=== PATIENT | male | born 1940 | race Caucasian/White ===

== ENCOUNTER 2023-01-25 09:39 | Emergency (ER) | payer MEDICARE, BC ==
[~2023-01-25] VITALS: Ht 162.6 cm; Wt 82.1 kg
[~2023-01-25 09:39] MED LIST: AMIODARONE HCL200 MG PO; ASPIRIN EC325 MG PO; ASPIRIN EC81 MG PO; ATORVASTATIN CA40 MG PO; CYCLOBENZAPRINE10 MG PO; FUROSEMIDE20 MG PO; LEVAQUIN500 MG PO; LOSARTAN POTAS100 MG PO; LOSARTAN POTASS25 MG PO; LUTEIN20 M1 PO; METOPROLOL SUCC50 MG PO; METOPROLOL TART25 MG PO; NORCO 5-325 TA1 EACH PO; POTASSIUM CHLO20 MEQ PO; PRILOSEC20 MG PO; PROVENTIL HFA6.7 GM INH; ULTRAM50 MG PO
[2023-01-25 10:37] LABS: BASOPHILS 0.4 % (0-2); HEMATOCRIT 25.7 % (35.0-50.0); HEMOGLOBIN 8.4 g/dL (12.0-18.0); LYMPHOCYTES 10.6 % (24-44); MCH 30.3 (27-36); MCHC 32.8 g/dl (30-36); MCV 92.2 fl (81-99); MONOCYTES 5.7 % (0-12); NEUTROPHILS 82.3 % (39-80); PLATELET COUNT 199 K/uL (140-440); RBC 2.79 M/ul (4.3-5.7)
[2023-01-25 10:48] LABS: ALBUMIN 3.1 g/dL (3.4-5.0); ALBUMIN/GLOBULIN RATIO 0.86 (1.1-2.4); ANION GAP 14.1 (7-21); BILIRUBIN, TOTAL 0.4 ng/dL (0.2-1.0); BUN/CREATININE RATIO 20.17 (6.0-28.6); CALCIUM 8.5 mg/dL (8.5-10.1); CREATININE, SERUM 1.14 mg/dL (0.70-1.30); MAGNESIUM 1.9 mg/dL (1.8-2.4); POTASSIUM 4.1 mmol/L (3.5-5.1); PROTEIN, TOTAL 6.7 g/dL (6.4-8.2)
[2023-01-25 14:02] LABS: INFLUENZA B NAA NEGATIVE (NEGATIVE); RESPIRATORY SYNCYTIAL VIR NAA NEGATIVE (NEGATIVE)
[2023-01-25 16:35] VITALS: BP 114/88
--- NOTE | 2023-01-26 05:55 | EKG ---
[facility] [address] [facility] [place] [address] Signed Sinus rhythm with premature supraventricular complexes Left axis deviation Right bundle branch block V1-3 ST depression not seen on previous ekg Abnormal ECG When compared with ECG of 17-JUL-2016 20:45, premature supraventricular complexes are now present Right bundle branch block is now present Questionable change in initial forces of Anterior leads Confirmed by AN MOLINA MD ([id number]) on 01/26/2023 5:55:04 AM Electronically Signed By: AN MOLINA 01/26/23 0555 PATIENT NAME: JOSE BAJWA Electrocardiogram DATE OF : 40 PHYSICIAN: AN MOLINA REPORT #: [id number] REPORT IS CONFIDENTIAL AND NOT TO BE RELEASED WITHOUT AUTHORIZATION
== END 2023-01-25 16:43 | disposition short-term general hospital (02) ==
LOC: ED 09:39
PROVIDERS: Emergency Medicine
DX: I21.4 Non-ST elevation (NSTEMI) myocardial infarction (principal); I35.0 Nonrheumatic aortic (valve) stenosis; I11.0 Hypertensive heart disease with heart failure; I50.9 Heart failure, unspecified; K21.9 Gastro-esophageal reflux disease without esophagitis; Z79.899 Other long term (current) drug therapy; Z79.82 Long term (current) use of aspirin; Z95.1 Presence of aortocoronary bypass graft; Z87.891 Personal history of nicotine dependence; Z20.822 Contact with and (suspected) exposure to COVID-19
CPT/HCPCS: 36415; 71045; 80053; 83735; 83880; 84484; 85025; 87502; 93005; 93010; C9803; J1940; U0002

== ENCOUNTER 2023-11-26 10:18 | Day surgery (SDC) | payer MEDICARE, BC ==
[~2023-11-26] VITALS: Ht 160 cm; Wt 80.0 kg
--- NOTE | ~2023-11-26 | OR ---
[facility] [address] [place], [place] [address] Draft DATE OF OPERATION: 11/26/2023 SURGEON: Praveen Boyd MD PREOPERATIVE DIAGNOSIS: History of anemia, now resolved. POSTOPERATIVE DIAGNOSES: 1. Sigmoid and left-sided diverticulosis. 2. Polyps x4 at hepatic flexure. PROCEDURE: Total colonoscopy to cecum with cold morcellation polypectomy x4. ANESTHESIA: Intravenous sedation; fentanyl 100 mcg and Versed 5 mg. INDICATION: This 83-year-old white man is a patient of Dr. Friedman and has history of anemia, which is now said to be resolved. He has had no rectal bleeding, diarrhea, or constipation. He is admitted to undergo colonoscopy at this time. He understands the risk of bleeding, infection, and perforation. FINDINGS: The prep was good. Complete colonoscopy was undertaken to the cecum with full intubation of the cecum. There were four small polyps in the hepatic flexure, all excised with cold morcellation technique. Diverticula were noted at the sigmoid and left colon. There was no evidence of malignancy or colitis. PROCEDURE IN DETAIL: The patient was brought to the endoscopy suite and placed in the lateral decubitus position, given intravenous sedation to the point of slurred speech and nystagmus with full cardiopulmonary monitoring. Digital rectal examination was normal. An Olympus video colonoscope was passed in the rectum and manipulated into the sigmoid where numerous diverticula were noted. With various manipulations, the scope was passed beyond this ultimately to the cecum. The ileocecal valve and appendiceal orifice were normal. The scope was withdrawn at the region of the hepatic flexure where there were four small polyps, all were excised with cold morcellation technique. Further withdrawal showed only diverticular change of the left colon and sigmoid. Retroflexed PATIENT NAME: JOSE BAJWA OPERATIVE REPORT DATE OF : 40 REPORT #: [id number] PHYSICIAN: PRAVEEN BOYD MD PCP: HERBERT FRIEDMAN MD REPORT IS CONFIDENTIAL AND NOT TO BE RELEASED WITHOUT AUTHORIZATION [facility] [address] [facility] [place], [place] [address] Draft view of the rectum was normal. Scope was removed and the patient was taken to the recovery room in good condition. CONCLUDING DIAGNOSES: Polyps x4 and diverticulosis. PLAN: Recommend high-fiber diet and repeat colonoscopy in 5 years, sooner if clinically indicated. The patient will return to the ongoing care of Dr. Friedman. MD SHY Brito/MODL /[id number] cc: Herbert Friedman MD Copies: HERBERT FRIEDMAN MD ~ PATIENT NAME: JOSE BAJWA OPERATIVE REPORT DATE OF : 40 REPORT #: [id number] PHYSICIAN: PRAVEEN BOYD MD PCP: HERBERT FRIEDMAN MD REPORT IS CONFIDENTIAL AND NOT TO BE RELEASED WITHOUT AUTHORIZATION
--- NOTE | ~2023-11-26 | OR ---
[facility] [address] [place], [place] [address] Draft DATE OF OPERATION: 11/26/2023 SURGEON: Praveen Boyd MD PREOPERATIVE DIAGNOSIS: History of anemia and distant history of food impaction 2014. POSTOPERATIVE DIAGNOSIS: Hiatal hernia without evidence of stricture or neoplasm. PROCEDURE: Esophagogastroduodenoscopy with biopsy. ANESTHESIA: Intravenous sedation; fentanyl 100 mcg and Versed 3 mg. INDICATIONS: An 83-year-old white man is a patient of Dr. Friedman. He has a history of food impaction in 2014. He has no particular symptoms of dysphagia currently, though he has had episodes of dysphagia in the past. He is admitted to undergo upper endoscopy to assess for eosinophilic esophagitis, stricture, or other etiology of his issues of dysphagia from time to time. He understands the risk of bleeding, infection, and perforation related to the upper endoscopy and wished to proceed. FINDINGS: There is no evidence of this distinct stricture, but there was some ongoing inflammation. The patient is on omeprazole already. The stomach and duodenum were normal. CLOtest was negative. DESCRIPTION OF PROCEDURE: The patient was brought to the endoscopy suite and placed in lateral decubitus position, given intravenous sedation to the point of slurred speech and nystagmus after lidocaine hypopharyngeal anesthesia. A bite block was placed. Olympus video upper endoscope was passed in the hypopharynx. The vocal cords appeared normal. Scope was advanced via the stomach, which showed a reasonably normal esophagus, showed there was a mild inflammatory change in the distal portion, but no actual stricture and no Schatzki's ring. There was no evidence of Whitlock's epithelium. Scope was passed to the stomach, which was insufflated with air. Rugal folds were normal as was the antrum and pylorus. Scope was passed through the pylorus into the duodenum, PATIENT NAME: JOSE BAJWA OPERATIVE REPORT DATE OF : 40 REPORT #: [id number] PHYSICIAN: PRAVEEN BOYD MD PCP: HERBERT FRIEDMAN MD REPORT IS CONFIDENTIAL AND NOT TO BE RELEASED WITHOUT AUTHORIZATION [facility] [address] [place], [place] [address] Draft which was normal. Biopsies were obtained of the duodenum to assess for celiac disease. The scope was withdrawn. A biopsy was then taken of the antrum for both JOANIE and pathologic testing. Retroflexed view did confirm hiatal hernia. The scope was straightened, withdrawn and biopsies were taken of the distal esophagus and mid esophagus as well. Scope was removed and plans were then made for colonoscopy. MD SHY Brito/MODL /[id number] cc: Dr. Friedman Copies: ~ PATIENT NAME: JOSE BAJWA OPERATIVE REPORT DATE OF : 40 REPORT #: [id number] PHYSICIAN: PRAVEEN BOYD MD PCP: HERBERT FRIEDMAN MD REPORT IS CONFIDENTIAL AND NOT TO BE RELEASED WITHOUT AUTHORIZATION
[~2023-11-26 10:18] MED LIST changes: +CLOPIDOGREL75 MG PO; +ENTRESTO 97 MG1 EACH PO; +FERATE240 MG PO; +FUROSEMIDE40 MG PO; +IBLOOD GLUCOSE TEST STRIP 1 EA TEST VI PRN; +ICAPS MV TABLE1 EACH PO; +LACTATED RINGER'S 1,000 ML IV SCH; +LIDOCAINE HCL 1% 5 ML SDV INJ ONE; +METFORMIN HCL500 M1 PO; +MIDAZOLAM HCL 5 MG/5 ML VIAL IV PRN; +VITAMIN B COMP1 EACH PO; +VITAMIN C500 M5 PO; +fentaNYL citrate 100 MCG/2 ML VIAL IV PRN
[2023-11-26 10:32] VITALS: BP 151/75
[2023-11-26] MEDS ORDERED: MIDAZOLAM HCL 5 MG/5 ML VIAL ONE (12:11)
[2023-11-26] MEDS ORDERED: fentaNYL citrate 100 MCG/2 ML VIAL ONE (12:12)
--- NOTE | 2023-11-26 13:39 | NUR ---
11/26/23 1339 Sheets,Eliane 1327 PT ARRIVED TO PACU AND WAKES EASILY. PT DENIES PAIN AND NAUSEA. RESP EVEN AND UNLABORED. VSS. 1336 O2 TURNED OFF.
[2023-11-26 14:07] VITALS: BP 101/62
--- NOTE | 2023-11-30 12:55 | PATH ---
[facility] [address] [facility] [place], [place] [address] Signed SPECIMEN(S): A DUODENAL BIOPSY SPECIMEN(S): B ANTRUM BIOPSY SPECIMEN(S): C DISTAL ESOPHAGEAL BIOPSY SPECIMEN(S): D MID ESOPHAGEAL BIOPSY SPECIMEN(S): E HEPATIC FLEXURE COLON SPECIMEN SOURCE: A. DUODENAL BIOPSY B. ANTRUM BIOPSY C. DISTAL ESOPHAGEAL BIOPSY D. MID ESOPHAGEAL BIOPSY E. HEPATIC FLEXURE COLON CLINICAL HISTORY: Esophageal stricture, colon screening, chronic esophagitis and duodenitis, diverticulosis FINAL PATHOLOGIC DIAGNOSIS: A. 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 B. Antrum, biopsies: - Benign antral mucosa with vascular congestion, negative for active inflammation. - No H. pylori bacteria are detected by HE stain. C. Distal esophagus, biopsies: - Chronic reflux esophagogastritis, negative for Whitlock's metaplasia. D. Mid esophagus, biopsies: - Benign squamous esophageal mucosa with vascular congestion, negative for increased eosinophils. E. Hepatic flexure colon, biopsies: - Fragments of tubular adenoma. AMB MICROSCOPIC EXAMINATION: Histologic sections of all submitted blocks (or IHC as applicable) are digitally scanned and examined. These findings, together with the gross examination, support the pathologic diagnosis. GROSS DESCRIPTION: A. The specimen, labeled and designated "[place] duodenal biopsy," is received PATIENT NAME: JOSE BAJWA PATHOLOGY DATE OF : 40 REPORT #: [id number] PHYSICIAN: TAMMIE PATHOLOGY PCP: HERBERT KOLB MD REPORT IS CONFIDENTIAL AND NOT TO BE RELEASED WITHOUT AUTHORIZATION [facility] [address] [place], [place] [address] Signed in formalin and consists of two kraft soft tissue fragments, ranging from 0.1-0.4 cm. Entirely submitted in (A1). B. The specimen, labeled and designated "Friese, antrum biopsy," is received in formalin and consists of three kraft soft tissue fragments, ranging from 0.2-0.3 cm. Entirely submitted in (B1). C. The specimen, labeled and designated "Friese, distal esophageal biopsy," is received in formalin and consists of five kraft soft tissue fragments, ranging from 0.2-0.9 cm. Entirely submitted in (C1). D. The specimen, labeled and designated "Friese, mid esophageal biopsy," is received in formalin and consists of six kraft soft tissue fragments, ranging from 0.1-0.4 cm. Entirely submitted in (D1). E. The specimen, labeled and designated "Friese, hepatic flexure colon biopsy," is received in formalin and consists of nine kraft soft tissue fragments, ranging from 0.2-0.4 cm. Entirely submitted in (E1). VB (under the direct supervision of a pathologist) The Gross Description was prepared using a voice recognition system. The report was reviewed for accuracy; however, sound-alike word errors, addition and/or deletions may occur. If there is any question about this report, please contact Client Services. ADDITIONAL NOTES: Immunohistochemical and/or in situ hybridization studies if performed in this case included appropriate positive controls that reacted as expected. This test was developed and its performance characteristics determined by [email or web address]. It has not been cleared or approved by the U.S. Food and Drug Administration. The FDA has determined that such clearance or approval is not necessary. This test is used for clinical purposes. It should not be regarded as investigational or for research. [facility] is certified under the Clinical Laboratory Improvement Amendments of 1988 (CLIA) as qualified to perform high complexity clinical laboratory testing. PERFORMING LABORATORY: Technical component was performed by [email or web address], [address] [place] [address] (CLIA# [id number]). Professional interpretation was performed by [facility] [address] [place] [phone] [id number] Diagnostician: Carmelina Moyer MD PATIENT NAME: JOSE BAJWA PATHOLOGY DATE OF : 40 REPORT #: [id number] PHYSICIAN: TAMMIE SIM PCP: HERBERT KOLB MD REPORT IS CONFIDENTIAL AND NOT TO BE RELEASED WITHOUT AUTHORIZATION [address] [place] [address] Signed Pathologist Electronically Signed 11/30/2023 Copies: ~ PATIENT NAME: JOSE BAJWA PATHOLOGY DATE OF : 40 REPORT #: [id number] PHYSICIAN: TAMMIE SIM PCP: HERBERT KOLB MD REPORT IS CONFIDENTIAL AND NOT TO BE RELEASED WITHOUT AUTHORIZATION
== END 2023-11-26 14:20 | disposition home or self-care (01) ==
LOC: OPS 10:18 → DS 10:23 → OPS 12:00 → DS 12-03 09:15
PROVIDERS: ATTEND Surgery
PROC: 0DB28ZX Excision of Middle Esophagus, Via Natural or Artificial Opening Endoscopic, Diagnostic (ICD-10-PCS; 2023-11-26)
PROC: 0DB38ZX Excision of Lower Esophagus, Via Natural or Artificial Opening Endoscopic, Diagnostic (ICD-10-PCS; 2023-11-26)
PROC: 0DBL8ZZ Excision of Transverse Colon, Via Natural or Artificial Opening Endoscopic (ICD-10-PCS; principal; 2023-11-26 12:00)
PROC: 0DB98ZX Excision of Duodenum, Via Natural or Artificial Opening Endoscopic, Diagnostic (ICD-10-PCS; 2023-11-26 12:00)
DX: Z12.11 Encounter for screening for malignant neoplasm of colon (principal); D12.3 Benign neoplasm of transverse colon; K57.30 Diverticulosis of large intestine without perforation or abscess without bleeding; K29.80 Duodenitis without bleeding; K21.00 Gastro-esophageal reflux disease with esophagitis, without bleeding; K44.9 Diaphragmatic hernia without obstruction or gangrene; I50.9 Heart failure, unspecified; I49.9 Cardiac arrhythmia, unspecified; Z95.1 Presence of aortocoronary bypass graft; Z87.891 Personal history of nicotine dependence; Z88.0 Allergy status to penicillin; Z79.82 Long term (current) use of aspirin; Z79.01 Long term (current) use of anticoagulants; Z79.899 Other long term (current) drug therapy
CPT/HCPCS: 99153; G0500; J2250; J3010; J7121

== ENCOUNTER 2024-08-22 16:38 | Emergency (ER) | payer MEDICARE, BC ==
[~2024-08-22] VITALS: Ht 160 cm; Wt 76.9 kg
[~2024-08-22 16:38] MED LIST changes: -IBLOOD GLUCOSE TEST STRIP 1 EA TEST VI PRN; -LACTATED RINGER'S 1,000 ML IV SCH; -LIDOCAINE HCL 1% 5 ML SDV INJ ONE; -MIDAZOLAM HCL 5 MG/5 ML VIAL IV PRN; -fentaNYL citrate 100 MCG/2 ML VIAL IV PRN
[2024-08-22] MEDS ORDERED: JARDIANCE10 MG PO (18:07)
[2024-08-22 18:39] LABS: CORONAVIRUS COVID-19 AG NEGATIVE (NEGATIVE); INFLUENZA A AG NEGATIVE (NEGATIVE); INFLUENZA B AG NEGATIVE (NEGATIVE)
[2024-08-22] MEDS ORDERED: ALBUTEROL/IPRATROPIUM 3 ML NEB INH ONE (19:30)
[2024-08-22] MEDS ORDERED: DEXAMETHASONE SOD PHOS 10 MG/ML VIAL IV ONE (20:45)
[2024-08-22] MEDS ORDERED: DEXAMETHASONE SOD PHOS 10 MG/ML VIAL IM ONE (20:45)
[2024-08-22 20:48] VITALS: BP 135/63
== END 2024-08-22 20:50 | disposition home or self-care (01) ==
LOC: ED 16:38
PROVIDERS: Emergency Medicine
DX: J06.9 Acute upper respiratory infection, unspecified (principal); B97.89 Other viral agents as the cause of diseases classified elsewhere; I25.10 Atherosclerotic heart disease of native coronary artery without angina pectoris; I11.0 Hypertensive heart disease with heart failure; I50.9 Heart failure, unspecified; K21.9 Gastro-esophageal reflux disease without esophagitis; Z95.1 Presence of aortocoronary bypass graft; Z88.0 Allergy status to penicillin; Z79.84 Long term (current) use of oral hypoglycemic drugs; Z79.82 Long term (current) use of aspirin; Z79.899 Other long term (current) drug therapy
CPT/HCPCS: 36415; 71045; 94640; 96372; 99285-25; J1100

== ENCOUNTER 2025-01-06 17:05 | Emergency (ER) | payer MEDICARE, BC ==
[~2025-01-06] VITALS: Ht 160 cm; Wt 73.0 kg
[~2025-01-06 17:05] MED LIST changes: +JARDIANCE10 MG PO
[2025-01-06] MEDS ORDERED: HYDROCODONE/ACETA 5/325 TAB PO ONE (19:15)
[2025-01-06] MEDS ORDERED: CYCLOBENZAPRINE HCL 10 MG HOME.PACK PO ONE (19:45)
[2025-01-06] MEDS ORDERED: HYDROCODONE BIT/ACETAMINOPHEN 5/325 MG 1 TAB HOME.PACK PO PRN (19:45)
[2025-01-06] MEDS ORDERED: CYCLOBENZAPRINE10 MG PO (19:45)
[2025-01-06] MEDS ORDERED: HYDROCODON-ACE1 EA10 PO (19:45)
[2025-01-06] MEDS ORDERED: methylPREDNISolone 4 MG HOME.PACK PO ONE (19:45)
[2025-01-06 20:16] VITALS: BP 131/70
== END 2025-01-06 20:17 | disposition home or self-care (01) ==
LOC: ED 17:05
DX: S39.012A Strain of muscle, fascia and tendon of lower back, initial encounter (principal); X50.0XXA Overexertion from strenuous movement or load, initial encounter; K21.9 Gastro-esophageal reflux disease without esophagitis; I11.0 Hypertensive heart disease with heart failure; I50.9 Heart failure, unspecified; Z87.891 Personal history of nicotine dependence; Z88.0 Allergy status to penicillin; Z79.84 Long term (current) use of oral hypoglycemic drugs; Z79.82 Long term (current) use of aspirin; Z79.899 Other long term (current) drug therapy
CPT/HCPCS: 72100; 99283; A9270

== ENCOUNTER 2025-01-12 22:43 | Emergency (ER) | payer MEDICARE, BC ==
[~2025-01-12] VITALS: Ht 160 cm; Wt 72.0 kg
[~2025-01-12 22:43] MED LIST changes: +HYDROCODON-ACE1 EA10 PO
--- OUTSIDE RECORDS SUMMARY | 2025-01-12 22:50 | XMS ---
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 Sofia has no Care Guidelines for this patient. Andree VISIT COUNT (12 MO.) [address] [facility] TOTAL 3 NOTE: Visits indicate total known visits. ED/C VISIT TRACKING (12 MO.) 01/12/2025 22:43 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 coronary artery without angina pectoris - Cough, unspecified - Gastro-esophageal reflux disease without esophagitis - Heart failure, unspecified - Hypertensive heart disease with heart failure - USP (current) use of aspirin - USP (current) use of oral hypoglycemic drugs - Other mcc (current) drug therapy - Other viral agents as the cause of diseases classified elsewhere - Presence of aortocoronary bypass graft INPATIENT VISIT TRACKING (12 MO.) No inpatient visits to display in this time frame [email or web address]
[2025-01-12] MEDS ORDERED: GLYCERIN 2 GM SUPP PR ONE (23:15)
[2025-01-13 01:16] VITALS: BP 129/74
== END 2025-01-13 01:20 | disposition home or self-care (01) ==
LOC: ED 22:43
DX: K59.00 Constipation, unspecified (principal); I11.0 Hypertensive heart disease with heart failure; I50.9 Heart failure, unspecified; K21.9 Gastro-esophageal reflux disease without esophagitis; Z87.891 Personal history of nicotine dependence; Z88.0 Allergy status to penicillin; Z79.84 Long term (current) use of oral hypoglycemic drugs; Z79.82 Long term (current) use of aspirin; Z79.899 Other long term (current) drug therapy
CPT/HCPCS: 96372; 99283-25; J2212